=== PATIENT | male | born 1955 | race Caucasian/White ===

== ENCOUNTER → 2017-07-23 07:53 | Outpatient (CLI) | payer BC, SELFPAY ==
[2017-07-23 09:20] LABS: Alanine Aminotransferase 24 IU/L (21-72); Albumin 3.9 g/dL (3.5-5.0); Albumin Globulin Ratio 1.3 (1.0-2.8); Alkaline Phosphatase 88 U/L (38-126); Aspartate Aminotransferase 31 IU/L (17-59); BUN Creatinine Ratio 22.5 (6-22); Bilirubin Total 1.2 mg/dL (0.2-1.3); Cholesterol 189 mg/dL (140-199); Estimated Glomerular Filt Rate > 60.0 mL/min (>60); Glucose 75 mg/dL (80-110); HDL Cholesterol 53 mg/dL (40-60); HEMOLYSIS < 15 (0-50); LDL Cholesterol Calculated 125 mg/dL (<100); Sodium 139 mmol/L (137-145); Total Protein 6.9 g/dL (6.3-8.2); Triglycerides 57 mg/dL (35-150)
[2017-07-23 09:49] LABS: Thyroid Stimulating Hormone 1.92 uIU/mL (0.47-4.68)
== END ==
PROVIDERS: Family Provider Internal Medicine; PCP Internal Medicine; Visit Provider Internal Medicine
DX: I10 Essential (primary) hypertension (principal); E78.5 Hyperlipidemia, unspecified; R63.5 Abnormal weight gain
CPT/HCPCS: 36415; 80053; 80061; 84443

== ENCOUNTER 2017-07-28 07:45 | Emergency (ER) | payer BC, SELFPAY ==
[2017-07-28 07:55] VITALS: BP 145/101; PULSE 92; RESP 18; TEMP 36.7; O2SAT 98; BMI 29.1
[2017-07-28 09:00] VITALS: BP 141/101; PULSE 73; RESP 16; O2SAT 98
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
== END 2017-07-28 09:05 | disposition home or self-care (01) ==
PROVIDERS: Emergency Provider Emergency Medicine; Family Provider Internal Medicine; PCP Internal Medicine
DX: S01.91XA Laceration without foreign body of unspecified part of head, initial encounter (principal); S06.0X0A Concussion without loss of consciousness, initial encounter; V18.0XXA Pedal cycle driver injured in noncollision transport accident in nontraffic accident, initial encounter
CPT/HCPCS: 12001; 99282; 99283

== ENCOUNTER → 2018-01-13 15:26 | Outpatient (CLI) | payer BC, SELFPAY ==
[2018-01-13 15:40] LABS: Bacteria Urine None Seen; RBC Urine None Seen (0-5/HPF); WBC Urine None Seen (0-5/HPF)
[2018-01-13 15:52] LABS: Add Manual Diff / Slide Review NO; Basophils Percent Auto 0.8 % (0-2); Eosinophils Percent Auto 1.5 % (2-4); Hematocrit 43.4 % (41-53); Hemoglobin 14.7 g/dL (13.5-17.5); Lymphocytes Percent Auto 19.6 % (25-40); Mean Corpuscular HGB Conc 33.9 % (30-36); Mean Corpuscular Hemoglobin 30.6 PG (26-34); Mean Corpuscular Volume 90.3 fL (80-100); Monocytes Percent Auto 12.7 % (3-14); Neutrophils Absolute Auto 3900 /uL (3000-5900); Neutrophils Percent Auto 65.4 % (50-75); Platelet Count 272 X10^3/uL (150-400); Red Cell Distribution Width 13.2 % (11.6-14.8)
[2018-01-13 15:59] LABS: Appearance Urine UA CLEAR; Bilirubin Urine UA NEGATIVE (NEGATIVE); Color Urine UA YELLOW; Glucose Urine UA NEGATIVE (Normal); Ketones Urine UA TRACE (NEGATIVE); Leukocyte Esterase Urine UA NEGATIVE (NEGATIVE); Nitrite Urine UA NEGATIVE (Negative); Occult Blood Urine UA NEGATIVE (Negative); Protein Urine UA NEGATIVE (Negative); Specific Gravity Urine UA 1.025 (1.000-1.035); Urobilinogen Urine UA 0.2 E.U./dL (0.2)
[2018-01-13 16:29] LABS: Hemoglobin A1C% w Est Avg Glu 5.3 % (4.0-6.0)
[2018-01-13 16:32] LABS: Culture Indicated Urine Cult Not Indicated; Mucus Urine 2+ (Negative)
[2018-01-13 16:35] LABS: BUN Creatinine Ratio 27.5 (6-22); Blood Urea Nitrogen 22 mg/dL (9-20); Calcium 9.3 mg/dL (8.4-10.2); Carbon Dioxide 27 mmol/L (22-32); Chloride 104 mmol/L (98-107); Estimated Glomerular Filt Rate > 60.0 mL/min (>60); Glucose 82 mg/dL (80-110); HEMOLYSIS < 15 (0-50); Potassium 4.2 mmol/L (3.4-5.1); Sodium 141 mmol/L (137-145)
== END ==
PROVIDERS: PCP Internal Medicine; Visit Provider Orthopaedic Surgery
DX: Z01.818 Encounter for other preprocedural examination (principal); N39.9 Disorder of urinary system, unspecified; Z13.1 Encounter for screening for diabetes mellitus
CPT/HCPCS: 36415; 80048; 81001; 83036; 85025; 93005

== ENCOUNTER 2018-03-17 21:49 | Emergency (ER) | payer BC, SELFPAY ==
[2018-03-17 22:04] VITALS: BP 157/94; PULSE 111; RESP 16; TEMP 36.9; O2SAT 97; BMI 29.1
--- NOTE | 2018-03-17 22:22 | PC.NURSE ---
Pt reports mildly decreased sensation but had a long acting numbing medication during surgery. Skin warm to touch.
--- NOTE | 2018-03-17 22:26 | PC.NURSE ---
Bleeding reinforced with ABD pads x2 and acewrap. Previous dressing applied during surgery not removed. small dressing saturated with blood. Pt denies severe pain, +CMS on L foot, +2 dorsal pedal and posterior tibia pulses
[2018-03-18 00:56] VITALS: BP 136/86; PULSE 96; RESP 16; TEMP 36.7; O2SAT 98
--- NOTE | 2018-03-23 21:28 | ED.WOUNDLAC ---
HPI - Wound/Laceration General Chief Complaint: Wound/Laceration Stated Complaint: left leg surgery today, bleeding through bandages Time Seen by Provider: 03/17/18 23:54 Source: patient and family Mode of arrival: ambulatory Limitations: no limitations History of Present Illness HPI narrative: Patient states he had a left knee surgery today, and that he has been bleeding from 1 of his more superior wounds. He states that the oozing has been constant and has soaked through a few bandages, and that he was told to come to the emergency department to get the bleeding checked out. Patient states the bleeding has actually abated somewhat. Patient states that his knee feels sore, but he does not otherwise feel bad. He denies any trauma to the fresh surgical site. Patient is not aware of any complications during the surgery. No other complaints at this time. No easy bleeding or bruising from any other site. Related Data Home Medications Medication Instructions Recorded Confirmed calcium citrate-vitamin D3 1 tab PO QDAY #0 12/11/16 01/29/18 omeprazole 20 mg PO QDAY #0 12/11/16 01/29/18 Previous Rx's Medication Instructions Recorded zoster vaccine live (PF) [Zostavax 0.5 ml SQ ONCE #0.5 ml 08/28/16 (PF)] lisinopril 40 mg tablet 40 mg PO DAILY #90 tab 08/06/17 sildenafil (antihypertensive) 20 20 mg PO .prn #20 tab 08/28/17 mg tablet atorvastatin 10 mg tablet 10 mg PO HS #90 tab 09/16/17 azithromycin 250 mg tablet See Label Instructions PO .COMPLEX 01/29/18 #6 tab Allergies Allergy/AdvReac Type Severity Reaction Status Date / Time No Known Drug Allergies Allergy Verified 08/06/17 09:03 Review of Systems Review of Systems All systems reviewed & are unremarkable except as noted in HPI and below Constitutional Denies chills, Denies fever(s), Denies lethargy and Denies weakness Eyes Denies change in vision, Denies eye discharge, Denies irritation and Denies loss of vision ENT Ears, Nose, Mouth, and Throat: Denies change in voice, Denies neck pain and Denies sore throat Cardiovascular Denies chest pain, Denies irregular heart rhythm, Denies lightheadedness, Denies palpitations, Denies dyspnea, Denies dyspnea on exertion and Denies orthopnea Respiratory Denies cough, Denies dyspnea, Denies dyspnea on exertion and Denies wheezing Gastrointestinal Gastrointestinal: Denies abdominal pain, Denies change in bowel habits, Denies diarrhea, Denies nausea and Denies vomiting Genitourinary Denies hematuria, Denies flank pain, Denies urinary incontinence and Denies urinary urgency Musculoskeletal Denies neck pain Integumentary/Breasts Denies pruritus, Denies erythema, Denies rash and Denies wounds Neurologic Denies confusion, Denies loss of vision and Denies weakness Psychiatric Denies anxiety, Denies confusion, Denies depression, Denies homicidal ideation and Denies suicidal ideation Endocrine Denies palpitations Hematologic/Lymphatic Denies easy bruising Allergic/Immunologic Denies wheezing [facility] Medical History Post-op bleeding (Acute) Concussion (Acute) Forehead abrasion (Acute) Osteoarthritis (Chronic) Hypertension (Chronic) Sleep apnea (Chronic) GERD (gastroesophageal reflux disease) (Chronic) Hyperlipidemia (Chronic) Erectile dysfunction (Chronic 05/23/15) Surgical History Status post knee surgery (Acute) Social History Smoking Status: Never smoker Exam Initial Vital Signs Initial Vital Signs: Vital Signs Temperature 98.5 F 03/17/18 22:04 Pulse Rate 111 H 03/17/18 22:04 Respiratory Rate 16 03/17/18 22:04 Blood Pressure 157/94 H 03/17/18 22:04 Pulse Oximetry 97 03/17/18 22:04 Const General: cooperative and well developed Nutritional Appearance: well nourished Orientation: alert, awake, oriented x3 and not confused [facility] Head: normocephalic and atraumatic Ears: external ears normal and TM's normal bilaterally Nose: external nose normal and No nasal discharge Face and sinus: sinuses nontender, face symmetric, no sinus tenderness and No dry mucous membranes Mouth: oral mucosae normal and moist mucous membranes Teeth and gingiva: dentition normal Throat: tonsils normal and uvula midline Eyes General: appearance normal, both eyes and all related structures Eyelids: eyelids normal Conjunctivae: conjunctivae normal Sclera: sclerae normal Pupils: PERRL EOM: EOM intact bilaterally Neck Neck: normal visual inspection, trachea midline, No lymphadenopathy, No midline deformity and No JVD Lymphatic: No lymphedema Chest Chest: normal inspection of the chest Resp Effort & Inspection: normal respiratory effort, able to speak in complete sentences, no respiratory distress and no use of accessory muscles Auscultation: clear to auscultation bilaterally, no rales, no rhonchi and no wheezes Cardio Rate: regular rate Rhythm: regular rhythm Heart Sounds: no click, no gallops, no murmurs and no rubs Pulses: normal peripheral pulses GI Inspection: non-distended Palpation: soft, no hepatosplenomegaly, No guarding, No pulsatile mass and No tender Auscultation: normal bowel sounds Back/Spine/Pelvis Back: No CVA tenderness Cervical Spine: cervical ROM normal and No pain with cervical ROM Thoracic/Lumbar Spine: thoracic and lumbar spine normal to inspection Skin General: no rashes or lesions noted, No jaundice and No petechiae Other: Patient has several fresh incision over his left knee. No active bleeding is noted. No hematoma is palpable, and no contusions are noted. Patient has a 1 cm incision superior to his knee from which there appears to have been recent bleeding. A moderate amount of blood is initially expressible from the wound. Blood is dark and nonclotted. The amount of blood expressible decreases with each expression until no further blood is expressible. No pulsatile bleeding, active bleeding, or bright red blood is noted. No bleeding is noted from any of the other wounds. One suture has come loose from the wound in question. No evidence of trauma to the wounds themselves. Neuro General: alert, oriented x3, gait normal and no focal motor deficits Speech: speech normal Extrem General: full ROM, no clubbing, cyanosis or edema, no pedal edema and no calf tenderness Left lower extremity: knee (Fresh surgical sites, as noted above. There is a mild amount of edema about the left knee. No other left lower extremity abnormalities.) Psych Appearance: well kempt Mental Status: mental status grossly normal Attitude: cooperative Thought Content: normal and suicidality Judgment: judgment good Procedures Laceration Repair Laceration 1: Site: lower extremity Side (If applicable): left Size (cm): 1 Description: linear Depth: simple, single layer Local Anesthetic: lidocaine 1% Amount of anesthesia used (mL): 1 Skin layer closed with: nylon Number of sutures: 1 Technique: simple, interrupted Course Course Narrative: I did not find evidence of serious, significant, or ongoing bleeding from any of the patient's wounds. I suspected venous postoperative bleeding, forming a hematoma which is leaking out through the patient's wound in question. There does not appear to be significant reaccumulation of any blood in the hematoma cavity. I have discussed with the patient care of the wound, as well as prevention of further bleeding. I have replaced the loose suture, as above. Patient is advised to follow up with his orthopedic surgeon, Dr. Torie Fink, for any further concerns. MDM - Wound/Laceration Medical Records Attestation: I reviewed the patient's medical records. Discharge Plan Departure Patient Disposition: Home Clinical Impression: Post-op bleeding Discharge Date/Time: 03/18/18 01:32 Interventions: ED Discharge Assessment Last Done: 03/18/18 01:31 Activity Restrictions/Additional Instructions: Your bleeding is most likely caused by a blood collection, called a hematoma, that is leaking out through your incision. There is no evidence at this time of a severe or ongoing bleed. Please follow up with your orthopedist, as scheduled, for your postoperative appointment. If you have further concerns, please call their office for an earlier appointment. Prescriptions: No Action azithromycin 250 mg tablet See Label Instructions PO .COMPLEX Qty: 6 RF: 0 zoster vaccine live (PF) [Zostavax (PF)] 19,400 UNIT/0.65 ML suspension for reconstitution 0.5 ml SQ ONCE Qty: 0.5 RF: 0 omeprazole 20 MG capsule,delayed release(DR/EC) 20 mg PO QDAY Qty: 0 RF: 0 calcium citrate-vitamin D3 200 MG/125 IU tablet 1 tab PO QDAY Qty: 0 RF: 0 sildenafil (antihypertensive) 20 mg tablet 20 mg PO .prn Qty: 20 RF: 3 atorvastatin [Lipitor] 10 mg tablet 10 mg PO HS Qty: 90 RF: 2 lisinopril 40 mg tablet 40 mg PO DAILY Qty: 90 RF: 3 Referrals: Jen Jaquez ARNP [Primary Care Provider] - Torie Fink MD [Physician] -
== END 2018-03-18 01:32 | disposition home or self-care (01) ==
PROVIDERS: Emergency Provider Emergency Medicine; Family Provider Internal Medicine; PCP Internal Medicine
DX: T81.9XXA Unspecified complication of procedure, initial encounter (principal)
CPT/HCPCS: 12001; 99282; 99283

== ENCOUNTER → 2018-09-22 10:14 | Outpatient (CLI) | payer BC, SELFPAY ==
--- NOTE | 2018-09-22 | DI.RAD.S_ITS ---
PROCEDURE: XR RIBS RT MIN 3V W CXR 1V INDICATIONS: FALL/RT RIB PAIN TECHNIQUE: 2 views of the right ribs were acquired, along with a single view chest. COMPARISON: None. FINDINGS: Surgical changes and devices: None. Bones and chest wall: No dislocations, but there is a fracture involving a right lateral lower rib, poorly visualized, but with what appears to be a slight subpulmonic right pleural effusion after trauma. No suspicious bony lesions. Overlying soft tissues appear unremarkable. Lungs and pleura: No pleural effusions or pneumothorax. Lungs appear clear. Mediastinum: Mediastinal contours appear normal. Heart size is normal. IMPRESSION: Subpulmonic small right pleural effusion in the setting of a single visualized minimally displaced rib fracture, no pneumothorax. Dictated by: Yann Lambert M.D. on 09/22/2018 at 11:38 Approved by: Yann Lambert M.D. on 09/22/2018 at 11:41
== END ==
PROVIDERS: PCP Internal Medicine; Visit Provider Internal Medicine
DX: S22.31XA Fracture of one rib, right side, initial encounter for closed fracture (principal); R07.81 Pleurodynia; J90 Pleural effusion, not elsewhere classified; W18.2XXA Fall in (into) shower or empty bathtub, initial encounter
CPT/HCPCS: 71101

== ENCOUNTER → 2018-09-26 07:30 | Outpatient (CLI) | payer BC, SELFPAY ==
--- NOTE | 2018-09-26 | DI.RAD.S_ITS ---
PROCEDURE: XR CHEST 2V INDICATIONS: RT RIB FX TECHNIQUE: 2 views of the chest were acquired. COMPARISON: [facility], , CHEST 2 VIEW, 09/03/2016, 9:33. FINDINGS: Surgical changes and devices: None. Lungs and pleura: Lungs are clear. No pleural effusions or pneumothorax. Mediastinum: Mediastinal contours are normal. Heart size is normal. Bones and chest wall: Minimally displaced acute appearing lateral right ninth rib fracture. No suspicious bony abnormalities. Soft tissues appear unremarkable. IMPRESSION: Minimally displaced acute appearing lateral right ninth rib fracture. No pneumothorax. No acute cardiopulmonary abnormalities. Dictated by: Rowdy Weir M.D. on 09/26/2018 at 9:25 Approved by: Rowdy Weir M.D. on 09/26/2018 at 9:27
== END ==
PROVIDERS: PCP Internal Medicine; Visit Provider Internal Medicine
DX: S22.31XA Fracture of one rib, right side, initial encounter for closed fracture (principal)
CPT/HCPCS: 71046

== ENCOUNTER → 2018-11-10 14:40 | Outpatient (CLI) | payer BC, SELFPAY ==
--- NOTE | 2018-11-10 | DI.RAD.S_ITS ---
PROCEDURE: XR RIBS RT MIN 3V W CXR 1V INDICATIONS: Right rib fx TECHNIQUE: 2 views of the right ribs were acquired, along with a single view chest. COMPARISON: [facility], CR, XR RIBS RT MIN 3V W CXR 1V, 09/22/2018, 10:35. FINDINGS: Surgical changes and devices: None. Bones and chest wall: No previously unidentified fractures or dislocations. No suspicious bony lesions. Overlying soft tissues appear unremarkable. Healing of the right lateral lower rib fracture. Mild residual malalignment. Lungs and pleura: No pleural effusions or pneumothorax. Lungs appear clear. Mediastinum: Mediastinal contours appear normal. Heart size is normal. IMPRESSION: Mild residual malalignment during healing of the right lateral lower rib fracture previously identified. No new injury. Dictated by: Yann Lambert M.D. on 11/10/2018 at 15:14 Approved by: Yann Lambert M.D. on 11/10/2018 at 15:15
== END ==
PROVIDERS: PCP Internal Medicine; Visit Provider Internal Medicine
DX: S22.31XA Fracture of one rib, right side, initial encounter for closed fracture (principal)
CPT/HCPCS: 71101

== ENCOUNTER 2018-12-12 11:44 | Day surgery (SDC) | payer BC, SELFPAY ==
[2018-12-12] MEDS: HYOSCYAMINE 0.125 MG TABLET PO (12:12)
[2018-12-12] MEDS: SODIUM CHLORIDE 0.9% 1,000 ML 200 ML IV (12:12)
[2018-12-12 12:16] VITALS: BP 116/81; PULSE 103; RESP 16; TEMP 36.7; O2SAT 98; BMI 29.2
--- NOTE | 2018-12-12 13:00 | PM.OP.ENDO ---
Operative Date/Time/Diagnoses Date of procedure: 12/12/18 Time of procedure: 13:00 Pre-op diagnosis: 1. Bright red bleeding per rectum 2. Melena 3. History of hemorrhoids 4. Screening for colon cancer Post-op diagnosis: other (1. Normal colonoscopy, 2. External hemorrhoids) Procedure & Clinicians Study performed: Colonoscopy Same procedure as scheduled: Yes Indications: 1. Bright red bleeding per rectum 2. Melena 3. History of hemorrhoids 4. Screening for colon cancer Surgeon: Jenni Marlow Procedure Notes SCOAP/Timeout: 13:05 Procedure in detail: ENDOSCOPIST: Jenni Marlow MD Sedation RN: Delroy Boyce RN Sedation start time: 1:07 pm Sedation and time: 1:23 p.m. PROCEDURE: Colonoscopy INDICATIONS: 1. Bright red bleeding per rectum 2. Melena 3. History of hemorrhoids 4. Screening for colon cancer MEDICATION: Levsin 0.125 mg sublingual, incremental doses of Versed and fentanyl until appropriate level sedation achieved. ASA CLASS: 2 CECAL WITHDRAWAL TIME: 19 minutes COMPLICATIONS: None. EXTENT OF PROCEDURE: Cecum. QUALITY OF PREP: Good with portions of liquid stool. PROCEDURE: Prior to insertion of the colonoscope, a digital rectal examination was accomplished with circumferential palpation of the distal rectal mucosa, moderate external hemorrhoids noted. The high-definition colonoscope was passed into the rectum in the usual fashion and advanced over to the cecum without difficulty. The ileocecal valve, appendiceal stoma, and medial wall all could be inspected and no abnormalities were seen. ASCENDING COLON: As the colonoscope was withdrawn, care was taken to expose and inspect the haustral folds and no abnormalities were seen. HEPATIC FLEXURE: Normal no polyps, diverticula or other abnormalities. TRANSVERSE COLON: Normal no polyps, diverticula or other abnormalities. DESCENDING COLON: Normal no polyps, diverticula or other abnormalities. SIGMOID COLON: Normal no polyps, diverticula or other abnormalities. RECTUM: Normal. J maneuver was produced. There was no significant perianal disease. The J maneuver was broken. The remainder of the rectum was inspected and there was moderate external hemorrhoid disease. The scope was withdrawn. IMPRESSION: 1. Normal colonoscopy 2. Moderate external hemorrhoids PLAN: 1. Repeat colonoscopy in 10 years 2. Source of patient's bleeding is likely secondary to external hemorrhoids. High-fiber therapy outlined. The possibility of a missed lesion including a malignancy has been discussed with the patient previously. Potential alarm symptoms have been discussed and should be reported immediately. Scope withdrawal time: 19 minutes Sedation minutes: 15 Findings: other findings (External hemorrhoids) Specimen(s): none sent Complications: none Impression: 1. Normal colonoscopy 2. External hemorrhoids Post-procedure Recommendations: Colonscopy in 10 years Follow up: as needed Disposition: PACU
[2018-12-12 13:41] VITALS: BP 116/67; PULSE 90; RESP 15; TEMP 36.7; O2SAT 96
[2018-12-12 13:46] VITALS: BP 98/73; PULSE 88; RESP 13; O2SAT 96
[2018-12-12 13:51] VITALS: BP 109/67; PULSE 87; RESP 15; O2SAT 96
[2018-12-12 13:56] VITALS: BP 101/68; PULSE 88; RESP 12; TEMP 36.6; O2SAT 96
[2018-12-12 14:03] VITALS: BP 111/74; PULSE 84; RESP 15; TEMP 36.5; O2SAT 97
[2018-12-12] MEDS: MIDAZOLAM 5 MG/5 ML VIAL IV (14:49)
[2018-12-12] MEDS: fentaNYL 250 MCG/5 ML INJ IV (14:49)
== END 2018-12-12 14:14 | disposition home or self-care (01) ==
PROVIDERS: PCP Internal Medicine; Visit Provider Student in an Organized Health Care Education/Training Program
PROC: 0DJD8ZZ Inspection of Lower Intestinal Tract, Via Natural or Artificial Opening Endoscopic (ICD-10-PCS; CPT 45378; principal; 2018-12-12 13:00)
DX: K62.5 Hemorrhage of anus and rectum (principal); K64.4 Residual hemorrhoidal skin tags
CPT/HCPCS: 45378; J2250; J3010

== ENCOUNTER → 2019-04-28 10:07 | Outpatient (CLI) | payer BC, SELFPAY ==
--- NOTE | 2019-04-28 | DI.RAD.S_ITS ---
PROCEDURE: XR KNEE LT 3V INDICATIONS: LEFT KNEE PAIN TECHNIQUE: 3 views of the knee were acquired. COMPARISON: [facility], CR, XR KNEE 3 VIEWS BILATERAL, 12/23/2017, 8:47. [facility] [place], CR, XR KNEE ARTHRITIC SERIES LT, 04/01/2018, 14:34. [facility] [place], CR, XR KNEE ARTHRITIC SERIES LT, 09/19/2018, 8:06. [facility], CR, KNEE 1-2 VIEWS RIGHT, 12/27/2016, 17:27. FINDINGS: Bones: No acute fractures or dislocations. Status post left knee hemiarthroplasty involving the medial joint compartment with subtle increased lucency at the bone prosthesis interface medially and posteriorly. Linear lucency is less than a millimeter thick. No hardware failure. No suspicious bony lesions. Stable suprapatellar enthesophyte. Soft tissues: Persistent small ossification noted adjacent to the quadriceps tendon on the lateral projection with small joint effusion. No suspicious soft tissue calcifications. IMPRESSION: 1. Status post left knee hemiarthroplasty of the medial compartment with very subtle linear lucency that appears most prominent medially and posteriorly at the bone-prosthesis interface. This may be due to imaging technique/positioning. However, early loosening not excluded. 2. Small suprapatellar joint effusion. Dictated by: Rowdy Weir M.D. on 04/28/2019 at 12:55 Approved by: Rowdy Weir M.D. on 04/28/2019 at 13:05
== END ==
PROVIDERS: PCP Internal Medicine; Referring Provider Internal Medicine; Visit Provider Internal Medicine
DX: M25.562 Pain in left knee (principal); M25.462 Effusion, left knee; Z96.652 Presence of left artificial knee joint
CPT/HCPCS: 73562

== ENCOUNTER → 2019-05-01 09:32 | Outpatient (CLI) | payer BC, SELFPAY ==
--- NOTE | 2019-05-01 | DI.US.S_ITS ---
PROCEDURE: US ABDOMEN COMPLETE INDICATIONS: UNSPECIFIED ABD PAIN, GROIN PAIN TECHNIQUE: Real-time scanning was performed of the abdominal and retroperitoneal organs, with image documentation. COMPARISON: [facility], CT, CT-IVP, 12/21/2009, 12:48. FINDINGS: Liver: Liver is normal in size and homogeneous in echotexture. There is a conglomerate cyst in the left hepatic lobe measuring 2.9 x 2.3 x 3.0 cm. Gallbladder: No gallstones. No gallbladder wall thickening, pericholecystic fluid or sonographic Rodrigues's sign. Biliary ducts: Intrahepatic bile ducts are non-dilated. Extrahepatic bile duct caliber measures 4.5 mm. Normal is 6-7 mm or less in diameter, or 10 mm or less post-cholecystectomy. Pancreas: Obscured by overlying bowel gas. Spleen: Spleen is borderline enlarged measuring 13.2 cm in length. Kidneys: Kidneys are normal in size and echotexture. Right kidney measures 13.3 cm long; left kidney measures 13.4 cm long. No hydronephrosis or nephrolithiasis. No solid masses. There is a 2.4 x 21 x 2.6 cm cyst in left kidney. Aorta: Visualized aorta is normal in caliber at less than 3 cm. Iliacs: Proximal common iliac arteries are normal in caliber at less than 2.5 cm. IVC: Intrahepatic inferior vena cava is patent. Miscellaneous: No free abdominal fluid. IMPRESSION: 1. Borderline splenomegaly. 2. Pancreas obscured by overlying bowel gas. 3. Hepatic cyst and left renal cyst. Dictated by: Mary Tamayo M.D. on 05/01/2019 at 13:40 Approved by: Mary Tamayo M.D. on 05/01/2019 at 13:45
== END ==
PROVIDERS: PCP Internal Medicine; Referring Provider Internal Medicine; Visit Provider Internal Medicine
DX: R10.30 Lower abdominal pain, unspecified (principal); K76.89 Other specified diseases of liver; N28.1 Cyst of kidney, acquired
CPT/HCPCS: 76700

== ENCOUNTER → 2020-03-04 09:04 | Outpatient (CLI) | payer BC, SELFPAY ==
[2020-03-04 12:20] LABS: COVID19 -Nasal RAPID Negative (Negative)
== END ==
PROVIDERS: PCP Internal Medicine; Visit Provider Specialist
DX: Z01.812 Encounter for preprocedural laboratory examination (principal); Z20.828 Contact with and (suspected) exposure to other viral communicable diseases
CPT/HCPCS: 87635; C9803

== ENCOUNTER → 2020-03-05 13:16 | Outpatient (CLI) | payer BC, SELFPAY ==
--- NOTE | 2020-03-05 13:19 | DI.RAD.S_ITS ---
PROCEDURE: XR WRIST RT MIN 3V INDICATIONS: right hand and wrist pain after fall TECHNIQUE: 3 views of the wrist were acquired. COMPARISON: [facility], [place], XR HAND RT MIN 3V, 03/05/2020, 13:20. [facility], [place], WRIST MINIMUM 3 VIEWS RIGHT, 02/21/2016, 16:13. FINDINGS: Bones: Irregularity of the hamate bone is less conspicuous compared to the same day hand radiographs. No dislocations. Moderate degenerative change most pronounced at the 1st CMC joint. No suspicious bony lesions. Soft tissues: No suspicious soft tissue calcifications. IMPRESSION: Question of hamate fracture better seen on same day radiographs of the hand. Correlate for point tenderness. Follow-up radiographs in 10-[address] of the wrist would be helpful. Dictated by: Flip La M.D. on 03/05/2020 at 12:48 Approved by: Flip La M.D. on 03/05/2020 at 12:50
--- NOTE | 2020-03-05 13:19 | DI.RAD.S_ITS ---
PROCEDURE: XR HAND RT MIN 3V INDICATIONS: right hand and wrist pain after fall TECHNIQUE: 3 views of the hand(s) acquired. COMPARISON: [facility], CR, XR WRIST RT MIN 3V, 03/05/2020, 13:20. FINDINGS: Bones: Irregularity in the region of the hamate bone seen on the lateral projection. This is more prominent compared to the x-rays from 2016 and is suspicious for nondisplaced fracture. No dislocations. Moderate degenerative change most pronounced at the 1st CMC joint. No suspicious bony lesions. Bones appear somewhat osteopenic. Soft tissues: No suspicious soft tissue calcifications. IMPRESSION: Concern for nondisplaced fracture at the hamate bone. Correlate for point tenderness. Follow-up radiographs in 10-[address] of the wrist would be helpful for confirmation. Dictated by: Flip La M.D. on 03/05/2020 at 12:44 Approved by: Flip aL M.D. on 03/05/2020 at 12:47
== END ==
PROVIDERS: PCP Internal Medicine; Referring Provider Physician Assistant; Visit Provider Physician Assistant
DX: M25.531 Pain in right wrist (principal); M79.641 Pain in right hand
CPT/HCPCS: 73110; 73130

== ENCOUNTER 2020-03-07 11:49 | Day surgery (SDC) | payer BC, SELFPAY ==
[2020-03-03 13:35] VITALS: BMI 31.1
[2020-03-07] VITALS (9 sets, daily range): BP systolic 120–147; BP diastolic 75–104; PULSE 77–90; RESP 14–24; TEMP 36.3–36.8; O2SAT 92–97; BMI 29.8
[2020-03-07] MEDS: LACTATED RINGERS 1,000 ML 42 ML IV (12:27)
--- NOTE | 2020-03-07 14:19 | PM.PREOP ---
Pre-operative Note COVID-19 COVID-19 status: Negative Result date/Date tested (Pos, Neg/Pending): 03/04/20 Interval Note History & Physical reviewed/Exam performed by Physician: Yes Changes to H&P: No
[2020-03-07] MEDS: CEFAZOLIN 2 GM/100 ML FROZ.PIGGY IV (14:52)
--- NOTE | 2020-03-07 15:04 | SUR.OPER ---
Supine on padded OR bed, head on pillow, arms secured on padded arm boards at <90 degrees abduction, legs uncrossed, safety belt at thigh, tape over blanket over lower legs.
--- NOTE | 2020-03-07 15:42 | PM.OP.1 ---
Operative Date/Time/Diagnoses Date of procedure: 03/07/20 Time of procedure: 15:42 Pre-op diagnosis: Umbilical hernia reducible Post-op diagnosis: same Procedure & Clinicians Procedure: Repair with underlay of mesh Same procedure as scheduled: Yes Indications: Symptomatic umbilical hernia below is a diastasis recti Surgeon: Jose Go Click Yes if Unassisted: Yes Anesthesia Type: General Operative Notes Findings: Small defect. 1.7 in piece of mesh placed under the defect. Closure Type: primary Specimen(s): none sent Prosthetic devices, grafts, tissues, transplants, or devices: Circular piece of mesh Applied: catheter Estimated Blood Loss (mL): 5 Blood products transfused: none Procedure in detail: Patient is placed supine on the operating room table and underwent general LMA anesthesia. He was prepped and draped in usual fashion. Curvilinear incision was made beneath the umbilicus and carried down level the fascia. Hernia sac was entered and the contents (E fat) E were partially removed and partially reduced. Fascial edge was cleared in the tissue removed from the fascia and under the muscle. I 1.7 in diameter circular piece of mesh was placed under the fascia and tacked into the closure will using interrupted 0 Ethibond sutures. The umbilicus was tacked down to the fascial edge with 3-0 Vicryl. The subQ was closed with interrupted 3 0 Vicryl the skin was closed running 4-0 Vicryl subcuticular stitch and Steri-Strips. Dressing was applied the patient was awakened and taken the recovery area extubated and in good condition. Complications: none Post-operative Condition: stable Disposition: PACU
[2020-03-07] MEDS: BUPIVACAINE 0.5% (PF) VIAL 30 ML INJ (16:01)
[2020-03-07] MEDS: OXYCODONE IR 5 MG TABLET PO (16:20)
== END 2020-03-07 16:56 | disposition home or self-care (01) ==
PROVIDERS: PCP Internal Medicine; Referring Provider Specialist; Visit Provider Specialist
PROC: (CPT 49585; principal; 2020-03-07 13:15)
DX: K42.9 Umbilical hernia without obstruction or gangrene (principal); I10 Essential (primary) hypertension; K21.9 Gastro-esophageal reflux disease without esophagitis; E78.00 Pure hypercholesterolemia, unspecified
CPT/HCPCS: 49585; C1781; J0690; J1100; J1885; J2405; J2704; J3010

== ENCOUNTER → 2020-06-28 09:18 | Outpatient (CLI) | payer BC, SELFPAY ==
[2020-06-28] MEDS: COVID-19 VACC #1, MRNA(MOD) 100 MCG/0.5 ML VIAL IM (09:24)
== END ==
PROVIDERS: PCP Internal Medicine; Visit Provider Internal Medicine
DX: Z23 Encounter for immunization (principal)
CPT/HCPCS: 0011A; 91301

== ENCOUNTER → 2020-07-25 14:26 | Outpatient (CLI) | payer BC, SELFPAY ==
--- NOTE | 2020-07-25 14:28 | DI.ECHO.S_ITS ---
[facility]---------+ [facility] +---------+ : : [address] : [address] : : : : [id number] : : : : Phone: [phone] Echocardiogram Report + + :Name: REY CLANCY Study Date: 07/25/2020 Height: 72 in : :[facility] ReadingLocation: Weight: 198 lb : : Gender: Male BSA: 2.1 m2 : :: 1955 Age: 64 yrs BP: 122/89 mmHg: :Reason For Study: Arrhythmia : :Ordering Physician: JOHNNA, : :BLAKE Performed By: Idris Zavala : :Referring: BLAKE ROSALES : + + Interpretation Summary Normal left ventricle size with ejection fraction 60-65%. Mild aortic valve sclerosis. Mildly enlarged ascending aorta. Comparison is made with the echocardiogram of 09/08/2014, there has been no significant change. Procedure: A two-dimensional transthoracic echocardiogram with color flow and Doppler was performed. The study quality was technically adequate. Comparison is made with the echocardiogram of 09/08/2014. The patient was in sinus rhythm with heart rates between 81-94 bpm during the exam. Left Ventricle: The left ventricle is normal in size and wall thickness. The ejection fraction is estimated to be 60-65%. There are no focal wall motion abnormalities. Diastolic function could not be accurately assessed due to unobtainable data. Right Ventricle: The right ventricle is normal in size and function. Atria: Both atria are normal in size. There is no Doppler evidence for an interatrial shunt. Mitral Valve: The mitral valve is normal in structure and function. There is no mitral regurgitation noted. Aortic Valve: There is mild aortic valve sclerosis. There is trace aortic regurgitation. Tricuspid Valve: The tricuspid valve is normal in structure and function. No tricuspid regurgitation. Pulmonary artery pressures cannot be estimated because of the lack of a measurable TR jet velocity but the IVC suggests a CVP of around 3 mmHg. Pulmonic Valve: The pulmonic valve is not well visualized. There is no pulmonic valvular regurgitation. Great Vessels: The aortic root is normal size. The ascending aorta is mildly enlarged. The IVC is of normal diameter and collapses greater than 50% with a sniff. This suggests a low right atrial pressure of 3 mm Hg. Pericardium/ Pleura There is no pericardial effusion. There is no pleural effusion. MMode/2D Measurements & Calculations LVIDd: 4.9 cm LVOT diam: 2.3 cm LVIDs: 2.6 cm Ao root diam: 3.5 cm FS: 47.2 % asc Aorta Diam: 4.1 cm IVSd: 0.83 cm LVPWd: 0.96 cm LV ramsey. diameter/BSA (cm/m^2): 2.3 LV sys. diameter/BSA (cm/m^2): 1.2 LA A2 area: 22.5 cm2 RA long axis: 6.4 cm LA A4 area: 20.0 cm2 RA area: 17.5 cm2 LA length (vol): 5.7 cm RA vol: 40.3 ml LA vol: 66.7 ml RA : 19.0 ml/m2 LA vol index: 31.5 ml/m2 TAPSE: 2.2 cm Doppler Measurements & Calculations Ao V2 max: 191.2 cm/sec LVOT Max Mario: 111.9 cm/sec Ao V2 mean: 136.8 cm/sec LV V1 max P.0 mmHg Ao max P.6 mmHg LV V1 VTI: 22.0 cm Ao mean P.2 mmHg GUERRERO(I,D): 2.6 cm2 Ao V2 VTI: 34.9 cm GUERRERO(V,D): 2.4 cm2 sev ratio: 0.63 GUERRERO indexed to BSA (cm^2/m^2): 1.2 MV E max mario: 60.9 cm/sec PA pr(Accel): 35.3 mmHg MV A max mario: 83.0 cm/sec MV E/A: 0.73 Med Peak E' Mario: 8.3 cm/sec E/E' med: 7.3 Lat Peak E' Mario: 9.0 cm/sec E/E' lat: 6.8 E/e' average: 7.0 MV dec time: 0.34 sec SV(LVOT): 89.9 ml Electronically signed by: Carol Stapleton on Reading Physician:07/25/2020 03:55 PM
== END ==
PROVIDERS: PCP Internal Medicine; Referring Provider Internal Medicine; Visit Provider Internal Medicine
DX: I35.8 Other nonrheumatic aortic valve disorders (principal); I77.89 Other specified disorders of arteries and arterioles; I49.9 Cardiac arrhythmia, unspecified; R01.1 Cardiac murmur, unspecified; R94.31 Abnormal electrocardiogram [ECG] [EKG]
CPT/HCPCS: 93306

== ENCOUNTER → 2020-07-27 07:51 | Outpatient (CLI) | payer BC, SELFPAY ==
[2020-07-27] MEDS: COVID-19 VACC #2, MRNA(MOD) 100 MCG/0.5 ML VIAL IM (08:09)
== END ==
PROVIDERS: PCP Internal Medicine; Visit Provider Internal Medicine
DX: Z23 Encounter for immunization (principal)
CPT/HCPCS: 0012A; 91301

== ENCOUNTER → 2020-09-16 07:29 | Outpatient (CLI) | payer BC, SELFPAY ==
[2020-09-16 08:01] LABS: Add Manual Diff / Slide Review NO; Basophils Absolute Auto 0 /uL (0-100); Basophils Percent Auto 0.5 % (0-2); Eosinophils Absolute Auto 100 /uL (0-450); Eosinophils Percent Auto 1.5 % (2-4); Hematocrit 40.7 % (41-53); Hemoglobin 13.4 g/dL (13.5-17.5); Lymphocytes Absolute Auto 1200 /uL (1100-4500); Lymphocytes Percent Auto 20.6 % (25-40); Mean Corpuscular HGB Conc 32.9 % (30-36); Mean Corpuscular Hemoglobin 29.7 PG (26-34); Mean Corpuscular Volume 90.2 fL (80-100); Monocytes Absolute Auto 700 /uL (0-900); Monocytes Percent Auto 13.1 % (3-14); Neutrophils Absolute Auto 3600 /uL (1500-7000); Neutrophils Percent Auto 64.3 % (50-75); Platelet Count 316 X10^3/uL (150-400); Red Blood Cell Count 4.51 X10^6/uL (4.5-5.9); Red Cell Distribution Width 14.3 % (11.6-14.8); White Blood Cell Count 5.6 X10^3/uL (4.5-11.0)
[2020-09-16 08:18] LABS: Cholesterol 275 mg/dL (140-199); HDL Cholesterol 51 mg/dL (40-60); LDL Cholesterol Calculated 210 mg/dL (<100); Triglycerides 72 mg/dL (35-150)
[2020-09-16 08:43] LABS: Prostate Specific Antigen 1.18 ng/mL (0.10-4.00)
[2020-09-16 09:05] LABS: Iron 86 ug/dL (49-181)
[2020-09-16 09:17] LABS: Percent Iron Saturation 24 % (20-50); Total Iron Binding Capacity 354 ug/dL (261-462); Transferrin 280 mg/dL (206-381)
== END ==
PROVIDERS: PCP Internal Medicine; Referring Provider Internal Medicine; Visit Provider Internal Medicine
DX: D64.9 Anemia, unspecified (principal); E78.5 Hyperlipidemia, unspecified; Z12.5 Encounter for screening for malignant neoplasm of prostate
CPT/HCPCS: 36415; 80061; 83540; 83550; 84153; 84466; 85025

== ENCOUNTER → 2020-12-15 10:05 | Outpatient (CLI) | payer BC, SELFPAY ==
--- NOTE | 2020-12-15 | DI.RAD.S_ITS ---
PROCEDURE: XR RIBS RT 2V INDICATIONS: RIGHT RIB PAIN TECHNIQUE: 3 views of the right ribs were acquired. COMPARISON: None. FINDINGS: Surgical changes and devices: None. Bones and chest wall: No acute fractures or dislocations. No suspicious bony lesions. Overlying soft tissues appear unremarkable. Old healed right-sided rib fractures noted. Tendon anchor noted in the right humeral head as well. Lungs and pleura: The visualized lung appears clear. No pleural effusions or pneumothorax are visible. IMPRESSION: No acute fracture or pneumothorax Old healed right-sided rib fractures noted. Approved by: Sony Christopher M.D. on 12/15/2020 at 11:46
== END ==
PROVIDERS: PCP Internal Medicine; Referring Provider Internal Medicine; Visit Provider Internal Medicine
DX: R07.81 Pleurodynia (principal); Z87.81 Personal history of (healed) traumatic fracture
CPT/HCPCS: 71100

== ENCOUNTER → 2021-11-17 16:35 | Outpatient (CLI) | payer MEDICARE, OTHER, SELFPAY ==
--- NOTE | 2021-11-17 | DI.MRI.S_ITS ---
PROCEDURE: MR SHOULDER RT WO CON INDICATIONS: Rotator cuff tear or rupture of right shoulder TECHNIQUE: Noncontrast oblique coronal T2 fast spin echo with fat saturation, oblique sagittal T1 spin echo and T2 fast spin echo with fat saturation, axial T1 spin echo and T2 fast spin echo with fat saturation through the shoulder. COMPARISON: [facility] [place], CR, XR SHOULDER 2+ VIEWS RIGHT, 09/29/2021, 10:17. [facility], MR, SHOULDER WITHOUT CONTRAST, 02/23/2016, 17:55. FINDINGS: Image quality: Image quality is mildly degraded by expected metal artifact. Diagnostic information is obtained. Rotator cuff: There is full-thickness tearing of the supraspinatus tendon and the anterior portion of the infraspinatus tendon from their distal insertions measuring up to 2.6 cm in anterior-posterior dimension with proximal tendon retraction measuring up to 3.2 cm. Mild edema is seen within the infraspinatus muscle, consistent with a superimposed muscle strain. There is no significant supraspinatus or infraspinatus muscle atrophy. Postsurgical changes are seen from subscapularis tendon repair with an intact surgical construct. No recurrent full-thickness subscapularis tendon tear is seen. There is mild chronic fatty infiltration involving the superior portion of the subscapularis muscle. The teres minor tendon is intact. Bones and bursae: No acute trabecular bone injury or fracture. A metallic anchor is seen in the anterior humeral head. There is mild partial-thickness cartilage thinning and irregularity in the glenoid and medial humeral head. Postsurgical changes are seen of the acromioclavicular joint without recurrent narrowing of the supraspinatus outlet. A small amount of fluid is seen in the subacromial/subdeltoid bursa, which communicates with the glenohumeral joint space through the full-thickness rotator cuff tendon tear. Capsule and soft tissues: Diminutive appearance of the superior labrum may be secondary to prior labral debridement and/or chronic degeneration. Status post biceps long head tenodesis with an intact surgical construct. There is mild partial effacement of the fat in the rotator interval. No focal capsular defect is identified. IMPRESSION: 1. Postsurgical changes from subscapularis tendon repair with an intact surgical construct. 2. Full-thickness tearing of the supraspinatus tendon and the anterior fibers of the infraspinatus tendon from their distal insertions measuring 2.6 cm in anterior-posterior dimension with proximal tendon retraction measuring up to 3.2 cm. Superimposed grade 1 strain of the infraspinatus muscle without significant muscle atrophy. 3. Status post biceps long head tenodesis with an intact surgical construct. 4. Blunting of the superior labrum is most likely secondary to prior later debridement and/or chronic degeneration or degenerative tearing. 5. 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 6. Postsurgical changes at the acromioclavicular joint without recurrent narrowing of the supraspinatus outlet. Dictated by: Michi Nguyen M.D. on 11/21/2021 at 7:59 Approved by: Michi Nguyen M.D. on 11/21/2021 at 8:29
== END ==
PROVIDERS: PCP Internal Medicine; Referring Provider Orthopaedic Surgery; Visit Provider Orthopaedic Surgery
DX: M75.121 Complete rotator cuff tear or rupture of right shoulder, not specified as traumatic (principal); M19.011 Primary osteoarthritis, right shoulder; M94.211 Chondromalacia, right shoulder
CPT/HCPCS: 73221

== ENCOUNTER → 2022-03-21 19:25 | Outpatient (CLI) | payer MEDICARE, OTHER, SELFPAY ==
--- NOTE | 2022-03-21 19:27 | DI.MRI.S_ITS ---
PROCEDURE: MR SHOULDER RT WO CON INDICATIONS: ROTATOR CUFF TEAR ARTHROPATHY/EVAL FOR NEW INJURY TECHNIQUE: Noncontrast oblique coronal T2 fast spin echo with fat saturation, oblique sagittal T1 spin echo and T2 fast spin echo with fat saturation, axial T1 spin echo and T2 fast spin echo with fat saturation through the shoulder. COMPARISON: [facility], MR, MR SHOULDER RT WO CON, 11/17/2021, 16:54. FINDINGS: Image quality: Excellent. Rotator cuff: There is full-thickness tearing of the entire supraspinatus tendon with medial retraction and atrophy of the supraspinatus, as before. There is full-thickness tearing of the mid and anterior infraspinatus tendon at the humeral insertion site. Subscapularis tendon demonstrates full-thickness tearing of its midportion at the humeral insertion site extending to the musculotendinous junction with associated subscapularis atrophy. Teres minor is intact. Bones and bursae: No bone marrow contusions or fractures. Tendon anchors within the humeral head. No acromioclavicular joint degeneration. Status post resection at the acromioclavicular joint. The acromion demonstrates conventional anatomy, without an os acromiale. No pathologic subacromial-subdeltoid or subcoracoid bursal fluid is present. Capsule and soft tissues: There is undercutting of the posterosuperior labrum. The biceps anchor is not seen. The biceps anchor within the bicipital groove is intact, and appears to have been reimplanted. The rotator interval appears normal, without fibrosis. The coracohumeral ligament is normal in thickness. IMPRESSION: 1. Postsurgical sequelae. 2. Full-thickness tearing of the entire supraspinatus, the mid/anterior infraspinatus, as well as the mid subscapularis tendons. There is associated atrophy as described above. 3. Intact reimplanted biceps tendon. 4. Glenoid labral tear. Dictated by: Sofy Burris M.D. on 03/22/2022 at 9:44 Approved by: Sofy Burris M.D. on 03/22/2022 at 9:49
== END ==
PROVIDERS: PCP Internal Medicine; Referring Provider Orthopaedic Surgery; Visit Provider Orthopaedic Surgery
DX: M75.121 Complete rotator cuff tear or rupture of right shoulder, not specified as traumatic (principal); S43.491A Other sprain of right shoulder joint, initial encounter
CPT/HCPCS: 73221

== ENCOUNTER → 2022-04-05 10:07 | Outpatient (CLI) | payer MEDICARE, OTHER, SELFPAY ==
--- NOTE | 2022-04-05 | DI.CT.S_ITS ---
PROCEDURE: CT SHOULDER RIGHT WITHOUT CON INDICATIONS: STRAIN OF MUSCLE AND TENDON TECHNIQUE: Noncontrast 1-1.5 mm thick sections acquired from the acromioclavicular joint to the inferior scapula, with coronal and sagittal reformatting. COMPARISON: None. FINDINGS: Image quality: Excellent. Bones: Postsurgical changes are noted in anterior and lateral aspect of humeral head. Likely postsurgical widening of acromioclavicular joint is also seen. There is a fracture line through base of acromion without significant displacement and may represent postsurgical changes. No other fracture or dislocation is seen. No suspicious bony lesions. Mild to moderate glenohumeral joint osteoarthritic changes are noted. Visualized right upper ribs are intact. There is superior migration of humeral head in relation to glenoid. Soft tissues: Moderate amount of fluid within acromioclavicular joint space is seen. Moderate amount of glenohumeral joint effusion and subacromial subdeltoid bursal fluid is also present. Patient's known full-thickness rupture of distal supraspinatus and infraspinatus are not well seen on current CT study. No significant muscle atrophy is seen on sagittal images. No abnormal soft tissue calcifications. No gross intra-articular loose bodies. IMPRESSION: 1. Postsurgical changes in right humeral head. Postsurgical widening of acromioclavicular joint. Minimally displaced fracture through base of distal acromion likely represent postsurgical changes, suggest clinical correlation. No other fracture or dislocation. No suspicious bony lesions. 2. Superior migration of humeral head in relation to glenoid. Patient's known full-thickness rupture of rotator cuff tendons is not well appreciated on the current study. No significant muscle atrophy is seen. 3. Moderate amount of joint effusion as above. No abnormal soft tissue calcifications. Dictated by: Corwin Power M.D. on 04/05/2022 at 11:36 Approved by: Corwin Power M.D. on 04/05/2022 at 11:44
== END ==
PROVIDERS: PCP Internal Medicine; Referring Provider Orthopaedic Surgery; Visit Provider Orthopaedic Surgery
DX: S46.011A Strain of muscle(s) and tendon(s) of the rotator cuff of right shoulder, initial encounter (principal); S42.124A Nondisplaced fracture of acromial process, right shoulder, initial encounter for closed fracture; M25.411 Effusion, right shoulder; X58.XXXA Exposure to other specified factors, initial encounter
CPT/HCPCS: 73200

== ENCOUNTER → 2022-05-16 08:18 | Outpatient (CLI) | payer MEDICARE, OTHER, SELFPAY ==
[2022-05-16 08:50] LABS: BUN Creatinine Ratio 20.8 (6-22); Blood Urea Nitrogen 16 mg/dL (9-20); Estimated Glomerular Filt Rate > 60 mL/min (>60)
--- NOTE | 2022-05-16 10:17 | DI.CT.S_ITS ---
PROCEDURE: CT ABDOMEN PELVIS W CON INDICATIONS: Rule out occult ventral hernia TECHNIQUE: After the administration of oral and intravenous contrast, axial sections were acquired from the lung bases to the pubic symphysis. Coronal and sagittal reformats were performed. For radiation dose reduction, the following was used: automated exposure control, adjustment of mA and/or kV according to patient size. COMPARISON:[facility], CT, CT-IVP, 12/21/2009, 12:48. FINDINGS: Image quality: Excellent. Lung bases: There is a questionable pleural based spiculated nodule along the lateral aspect of the right lung base which measures 1.4 cm in diameter (series 3/image 18). This is new when compared with the prior CT of this region dated December 21, 2009. Heart: No significant findings. ABDOMEN: Liver: Unremarkable. Low-density cystic lesions are noted. Gallbladder: Unremarkable. Biliary ducts: Unremarkable. Pancreas: Unremarkable. Spleen: Unremarkable. Adrenal Glands: Unremarkable. Kidneys and Ureters: Unremarkable. A low-density cyst is present in the lower pole of the left kidney. Stomach and Bowel: Stomach, small bowel loops, and colon are unremarkable. The appendix is thin walled. Peritoneum: No abnormal intraperitoneal fluid. No free air. Ventral Wall: No hernia. Abdominal Nodes: No retroperitoneal or mesenteric adenopathy by size criteria. Vessels: Aorta and inferior vena cava are normal in size. There are scattered atheromatous calcifications throughout the aorta and iliac arteries bilaterally. PELVIS: Pelvic Organs: Unremarkable. Bladder: Unremarkable. Pelvic Nodes: No enlarged lymph nodes. Miscellaneous: There is a small fat containing left inguinal hernia.. Bones: Unremarkable. IMPRESSION: 1. Small fat containing left inguinal hernia. No other hernias visualized. 2. Questionable mass within the right lung base. Focal atelectasis could also be considered in the differential. Consider dedicated CT of the chest to further characterize this finding. Dictated by: Sola Fischer M.D. on 05/16/2022 at 11:01 Approved by: Sola Fischer M.D. on 05/16/2022 at 11:29
== END ==
PROVIDERS: PCP Internal Medicine; Referring Provider Surgery; Visit Provider Surgery
DX: R10.13 Epigastric pain (principal); K42.9 Umbilical hernia without obstruction or gangrene; K40.90 Unilateral inguinal hernia, without obstruction or gangrene, not specified as recurrent
CPT/HCPCS: 36415; 74177; 82565; 84520; Q9967

== ENCOUNTER → 2022-05-18 12:31 | Outpatient (CLI) | payer MEDICARE, OTHER, SELFPAY ==
--- NOTE | 2022-05-18 12:33 | DI.CT.S_ITS ---
PROCEDURE: CT CHEST W CON INDICATIONS: follow up right lower lung lesion TECHNIQUE: After the administration of intravenous contrast, 5 mm thick sections acquired from the pulmonary apices to the posterior costophrenic angles. 1 mm axial lung, 5 mm thick coronal and sagittal reformats and 7 mm axial MIP were acquired. For radiation dose reduction, the following was used: automated exposure control, adjustment of mA and/or kV according to patient size. COMPARISON: [facility], CT, CT-IVP, 12/21/2009, 12:48. [facility], CT, CT ABDOMEN PELVIS W CON, 05/16/2022, 10:14. FINDINGS: Image quality: Excellent. Lungs and pleura: No acute air space opacities. At the lateral right costophrenic sulcus a previously identified pleural-based radiodensity measured at 1.4 cm AP may have slightly enlarged and now measures 1.9 cm AP. There is a slight degree of adjacent alveolar airspace disease and the comparison study was performed 05/16/22. No pleural effusions or pneumothorax. Central and peripheral airways are patent and normal in caliber. Mediastinum: Heart size is normal. No pericardial effusion. No mediastinal or hilar adenopathy by size criteria. Thoracic aorta and central pulmonary arteries are normal in size. Esophagus is normal in caliber. No hiatal hernia. Bones and chest wall: No suspicious bony lesions. No vertebral body compression fractures. No axillary or supraclavicular adenopathy by size criteria. Thyroid gland appears normal where well seen. Abdomen: Visualized upper abdominal solid organs appear normal, with several scattered hepatic cysts. Upper abdominal bowel loops are normal in caliber. IMPRESSION: Apparent mild interval enlargement of an ovoid area of pleural based focal radiodensity at the right lateral costophrenic sulcus. Given the comparison study was from 05/16/22 and the current study is only 2 days later this is potentially a manifestation of an inflammatory process. This area would not be accurately assessed by plain film imaging and for this reason follow-up in 3-4 weeks by a limited noncontrast CT scanning targeted to that area is recommended. This structure was not present on a comparison CT of the urinary tract that included this area in 2009. Dictated by: Yann Lambert M.D. on 05/18/2022 at 15:14 Approved by: Yann Lambert M.D. on 05/18/2022 at 15:21
== END ==
PROVIDERS: PCP Internal Medicine; Referring Provider Surgery; Visit Provider Surgery
DX: R93.89 Abnormal findings on diagnostic imaging of other specified body structures (principal); R91.8 Other nonspecific abnormal finding of lung field
CPT/HCPCS: 71260; Q9967

== ENCOUNTER → 2022-06-14 09:06 | Outpatient (CLI) | payer MEDICARE, OTHER, SELFPAY ==
--- NOTE | 2022-06-14 09:08 | DI.CT.S_ITS ---
PROCEDURE: CT CHEST WO CON INDICATIONS: follow up after prior CT chest 05/18/22 TECHNIQUE: Noncontrast 5 mm thick sections acquired from the pulmonary apices to the posterior costophrenic angles. 1 mm lung window, 5 mm thick coronal and sagittal and 7 mm axial MIP reformats were then acquired. For radiation dose reduction, the following was used: automated exposure control, adjustment of mA and/or kV according to patient size. COMPARISON: Merged With [facility], CT, CT CHEST W [facility], 05/18/2022, 12:46. FINDINGS: Image quality: Excellent. Lungs and pleura: Again noted is a nodular density at the right costophrenic angle laterally measuring 1.7 centimeters in maximal dimension. Given that this finding has persisted from the prior examination either short interval follow-up CT in approximately 6 months or PET-CT scan to evaluate for metabolic activity may be of further clinical value. No pleural effusions or pneumothorax. Central and peripheral airways are patent and normal in caliber. Mediastinum: Heart size is normal. No pericardial effusion. No mediastinal adenopathy by size criteria. Central pulmonary arteries are normal in size. Esophagus is normal in caliber. No hiatal hernia. Again noted is a 4.6 centimeter ascending thoracic aortic aneurysm. Bones and chest wall: No suspicious bony lesions. No vertebral body compression fractures. No axillary or supraclavicular adenopathy by size criteria. Thyroid gland normal . Abdomen: Visualized upper abdominal solid organs and bowel loops appear normal in the absence of contrast others on than some hepatic cysts.. IMPRESSION: 1. Relatively stable appearance of nodular density at the right costophrenic angle measuring 1.7 centimeters in maximal dimension. Given the imaging findings either short interval follow-up CT of the chest without contrast in 6 months or a PET-CT scan to evaluate for metabolic activity may be of further clinical value. 2. Stable 4.6 centimeter ascending thoracic aortic aneurysm. 3. Scattered hepatic cysts. Dictated by: Ernesto Barragan M.D. on 06/14/2022 at 10:50 Approved by: Ernesto Barragan M.D. on 06/14/2022 at 11:00
== END ==
PROVIDERS: PCP Internal Medicine; Referring Provider Surgery; Visit Provider Surgery
DX: R91.8 Other nonspecific abnormal finding of lung field (principal); I71.21 Aneurysm of the ascending aorta, without rupture; K76.89 Other specified diseases of liver
CPT/HCPCS: 71250

== ENCOUNTER 2022-06-14 09:08 | Day surgery (SDC) | payer MEDICARE, OTHER, SELFPAY ==
--- NOTE | 2022-06-14 | PATH_ITS ---
[facility] Accession Number: [id number] No. of containers..03 Tissue . 01 Material submitted: . PART A: gastrointestinal site - BIOPSY ANTRUM PART B: colon - POLYPS TRANSVERSE COLON PART C: rectum - RECTAL POLYP . 01 Diagnosis: A. Antrum, Biopsy: Gastric antral mucosa with reactive gastropathy. Negative for Helicobacter organisms by immunohistochemistry. Negative for intestinal metaplasia. Negative for dysplasia or malignancy. . B. Transverse Colon Polyps: Colonic mucosa with prominent benign lymphoid aggregate x2. Negative for serrated lesion, dysplasia or malignancy. Additional step sections examined. . C. Rectal Polyp: Hyperplastic polyp. MRV 06/19/2022 1610 Local . 01 Electronically signed: . Tyler Warner MD, PhD, Pathologist NPI- [id number] . 01 Gross description: . A. Received in formalin, labeled with the patient's name, , and designated biopsy antrum, and consists of two irregular sexton, soft tissue fragments measuring 0.3 cm each in greatest dimension. Submitted entirely in cassette A1. B. Received in formalin, labeled with the patient's name, , and designated polyps transverse colon, and consists of two irregular sexton, soft tissue fragments ranging from 0.6 cm to 0.8 cm in greatest dimension. Submitted entirely in cassette B1. C. Received in formalin, labeled with the patient's name, , and designated rectal polyp, and consists of a single irregular sexton, soft tissue fragment measuring 0.5 cm in greatest dimension. Submitted entirely in cassette C1. ([id number]) /[facility] 06/16/2022 1722 Local . 01 Microscopic: . A. An immunohistochemical stain was performed to evaluate for Helicobacter organisms and is negative. The control stain showed appropriate reactivity. . * This test was developed and its performance characteristics determined by [facility]. It has not been cleared or approved by the U.S. Food and Drug Administration. The FDA has determined that such clearance or approval is not necessary. This test is used for clinical purposes. It should not be regarded as investigational or for research. . 01 Pathologist provided ICD-10: K29.60, K62.1, K63.5 . 01 CPT . 749443, 039498, 865784, U94733 Specimen Comment: A courtesy copy of this report has been sent to [phone] Performed at: 01 [facility] [address] [place] [address], [place], [place] [id number] MD Zaki Gonzales MD Phone: [phone]
[2022-06-14 11:13] VITALS: BP 133/92; PULSE 100; RESP 16; TEMP 36.8; O2SAT 98; BMI 29.2
[2022-06-14] MEDS: LACTATED RINGERS 1,000 ML 125 ML IV (11:28)
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
--- NOTE | 2022-06-14 14:11 | PM.OP.EC ---
Operative Date/Time/Diagnoses Date of procedure: 06/14/22 Time of procedure: 14:11 Pre-op diagnosis: Dyspepsia and colon cancer screening Post-op diagnosis: same Procedure & Clinicians Study performed: EGD and colonoscopy Same procedure as scheduled: Yes Surgeon: Mann León Procedure Notes Procedure in detail: Surgeon: Mann León MD Anesthesia: Lele Glasgow CRNA Procedure in detail: A timeout was performed. A bite blocked was placed and monitors were attached to the patient. The patient was positioned in a left lateral decubitus position. Sedation was administered by Lele Glasgow CRNA. Once the patient was sedated the endoscope was inserted through the bite block and passed through the esophagus and stomach and into the duodenum. The duodenum in the bulb appeared normal. We then withdrew the scope into the stomach. There was antritis and random biopsies taken from the antrum. The endoscope was retroflexed and no hiatal hernia was seen and no other abnormalities were seen in the stomach. The endoscope was straightned and withdrawn into the esophagus. No abnormalities were seen in the esophagus. Findings: Antritis Next we repositioned the patient for a colonoscopy. A digital rectal exam was performed and was normal. The colonoscope was inserted and advanced to the cecum. The appendiceal orifice was identified and photographed. The scope was slowly withdrawn over greater than 6 minutes. There were 2 5 mm polyps in the distal transverse colon near the splenic flexure removed with cold snare. There was a 7 mm rectal polyp removed with a cold snare. The scope was retroflexed in the rectum and no other abnormalities were seen. Findings: 2 5 mm polyps in the distal transverse colon and a 7 mm polyp in the rectum EBL: 5 mL Scope withdrawal time: 16 minutes Sedation minutes: 29 minutes Post-procedure Disposition: PACU
[2022-06-14 14:13] VITALS: BP 122/87; PULSE 122; RESP 98; O2SAT 16
[2022-06-14 14:15] VITALS: BP 103/72; PULSE 92; RESP 16; TEMP 36.4; O2SAT 97
[2022-06-14 14:18] VITALS: BP 138/93; PULSE 96; RESP 12; O2SAT 97
[2022-06-14 14:23] VITALS: BP 146/95; PULSE 95; RESP 12; TEMP 36.6; O2SAT 95
== END 2022-06-14 14:40 | disposition home or self-care (01) ==
PROVIDERS: PCP Internal Medicine; Referring Provider Surgery; Visit Provider Surgery
PROC: 0DJ08ZZ Inspection of Upper Intestinal Tract, Via Natural or Artificial Opening Endoscopic (ICD-10-PCS; CPT 43235; principal; 2022-06-14 11:30)
PROC: 0DJD8ZZ Inspection of Lower Intestinal Tract, Via Natural or Artificial Opening Endoscopic (ICD-10-PCS; CPT 45378; 2022-06-14 11:30)
DX: Z12.11 Encounter for screening for malignant neoplasm of colon (principal); R10.13 Epigastric pain; R91.8 Other nonspecific abnormal finding of lung field; I71.21 Aneurysm of the ascending aorta, without rupture; K76.89 Other specified diseases of liver; K31.9 Disease of stomach and duodenum, unspecified; K29.50 Unspecified chronic gastritis without bleeding; K62.1 Rectal polyp
CPT/HCPCS: 45385; 43239; 71250; J2704; J3010

== ENCOUNTER → 2023-01-17 07:12 | Outpatient (CLI) | payer MEDICARE, OTHER, SELFPAY ==
--- NOTE | 2023-01-17 07:14 | DI.MRI.S_ITS ---
PROCEDURE: MR FOOT LT WO/W CON INDICATIONS: Left foot lesion TECHNIQUE: Noncontrast coronal T1 spin echo and STIR, sagittal T1 spin echo with fat saturation and STIR, axial T1 spin echo and T2 fast spin echo with fat saturation. After the administration of contrast, axial/sagittal/coronal T1 spin echo with fat saturation through the left foot. COMPARISON: None. FINDINGS: Image quality: Excellent. Bones: Mild midfoot and forefoot joint osteoarthritic changes are seen with joint space narrowing, subchondral sclerosis and small marginal osteophyte formation more notably involving great toe. No suspicious intraosseous lesion or abnormal intraosseous enhancement. No fracture or dislocation. No metatarsal stress fractures. Soft tissues: There is a slightly lobulated oval heterogeneously T1 hypointense and T2 hyperintense structure within plantar soft tissue over medial cuneiform and measures up to 1.5 x 1.7 x 1.4 cm in size series 6, image 10 and series 7, image 43. After IV contrast infusion, there is heterogeneous contrast enhancement within this structure. This lesion is superficial to the adjacent flexor tendons and is involving the medial aspect of plantar fascia at this level. No other enhancing soft tissue mass or drainable fluid collection is noted. The scanned muscles demonstrate normal overall bulk and internal signal. Extensor and flexor tendons are intact. IMPRESSION: 1. 1.5 x 1.7 x 1.4 cm oval heterogeneously T1 hypointense and T2 hyperintense lesion within medial midfoot plantar soft tissue at the level of medial cuneiform/1st TMT joint and show heterogeneous contrast enhancement. There is likely involvement of adjacent medial plantar fascia which may represent a fibroma. Excision of the nodule can be done for more definitive diagnosis. 2. No underlying flexor tendon involvement. No abnormal intramuscular enhancement. 3. Mild midfoot and forefoot joint osteoarthritis. No fracture or dislocation. No abnormal intraosseous enhancement. Dictated by: Corwin Power M.D. on 01/17/2023 at 10:09 Approved by: Corwin Power M.D. on 01/17/2023 at 10:17
== END ==
PROVIDERS: PCP Internal Medicine; Referring Provider Surgery; Visit Provider Surgery
DX: D23.72 Other benign neoplasm of skin of left lower limb, including hip (principal); M19.072 Primary osteoarthritis, left ankle and foot
CPT/HCPCS: 73720; A9579

== ENCOUNTER 2023-02-12 12:02 | Day surgery (SDC) | payer MEDICARE, OTHER, SELFPAY ==
[2023-02-06 12:25] VITALS: BMI 30.1
--- NOTE | 2023-02-12 | PATH_ITS ---
[facility] Accession Number: [id number] No. of containers..01 Tissue . 01 Material submitted: . foot - LEFT FOOT FIBROMA . 01 Diagnosis: Left Foot, Excision: Cellular dermatofibroma with hemosiderotic features, green-inked 6 to 9 o'clock peripheral margin and inked deep margin are focally involved. See comment. V 02/27/2023 1421 Local . 01 Comment: The lesional cells are highlighted on a CD10 stain while negative for SOX-10 and CD34 expression, supporting the above diagnosis. Given the hemosiderotic features, an HHV8 stain is performed which is negative. Certain variants of fibrous histiocytoma/dermatofibroma (including the cellular variant) have an increased risk of local reoccurence (approximately 25%) and have been described on rare occasions to behave in an aggressive fashion. Evaluation of the margin status is somewhat limited due to artifact; however, the lesion appears to focally extends to a green-inked 6 to 9 o'clock margin, as well as focally to an inked deep margin. . This case has been reviewed by Dr. Verito Lozoya, who agrees with the above diagnosis. . * This test was developed and its performance characteristics determined by [facility]. It has not been cleared or approved by the U.S. Food and Drug Administration. The FDA has determined that such clearance or approval is not necessary. This test is used for clinical purposes. It should not be regarded as investigational or for research. . 01 Electronically signed: . Idris Peters MD, Dermatopathologist NPI- [id number] . 01 Gross description: . The specimen is received in formalin labeled with the patient's name, , and left foot fibroma, stitch wang anterior, consists of an oriented circular excision of skin with a suture designating anterior per the requisition and is now arbitrarily designated 12 o'clock. The specimen measures 2.6 cm from 12 to 6, 3.0 cm from 3 to 9, and is 0.9 cm thick. Inked as follows: 12 to 3 orange, 3 to 6 blue, 6 to 9 to 12 green, and is serially sectioned from 12 to 6 into eight slices to reveal a yellow to pale sexton firm cut surface. The specimen is submitted entirely as follows: . A1: Tips. A2-A5: Remaining sequential slices. See diagram. ([id number]) /MRV 02/13/2023 [facility]6 Local . 01 Pathologist provided ICD-10: D23.9 . 01 CPT . 258760, Y43980, D00595 Specimen Comment: A courtesy copy of this report has been sent to [phone] Performed at: 01 [facility] [address] [place] [address], [place], [place] [id number] MD Zaki Gonzales MD Phone: [phone]
[2023-02-12 12:42] VITALS: BP 151/98; PULSE 79; RESP 16; TEMP 36.2; O2SAT 98; BMI 30.1
[2023-02-12] MEDS: LACTATED RINGERS 1,000 ML 42 ML IV (12:49)
--- NOTE | 2023-02-12 13:02 | PM.PREOP ---
Pre-operative Note COVID-19 COVID-19 status: Not tested Interval Note History & Physical reviewed/Exam performed by Physician: Yes Changes to H&P: No ASA Class (for procedural sedation): II
[2023-02-12] MEDS: CEFAZOLIN 2 GM/100 ML PREMIX 100 ML IV (13:08)
--- NOTE | 2023-02-12 13:28 | SUR.OPER ---
Supine on padded OR bed, head on pillow, arms secured on padded arm boards at <90 degrees abduction, legs uncrossed, safety belt at waist tape over blanket over right lower leg, left leg draped free and lower leg on padded blankets, lateral post at lower thigh.
[2023-02-12] MEDS: BUPIVACAINE 0.5% (PF) 30 ML VIAL INJ (13:44)
[2023-02-12 15:19] VITALS: BP 141/97; PULSE 90; RESP 15; TEMP 36.8; O2SAT 95
--- NOTE | 2023-02-12 15:23 | PM.OP.1 ---
Operative Date/Time/Diagnoses Date of procedure: 02/12/23 Time of procedure: 15:23 Pre-op diagnosis: Left foot dermatofibroma Post-op diagnosis: same Procedure & Clinicians Procedure: Wide local excision of left foot dermatofibroma with flap closure Same procedure as scheduled: Yes Surgeon: Mann León Anesthesia Type: General Operative Notes Procedure in detail: The patient is a 67-year-old man with a left foot dermatofibroma that was growing. He was consented for wide local excision. The patient was given preoperative antibiotic. The patient was brought to the operating room and placed on the table in the supine position. General anesthesia was induced. The left foot and leg were prepped and draped in the usual fashion and a time-out was performed. A tourniquet was applied to the left calf. Plain Marcaine was injected around the lesion. We made an oval incision to excise the mass. The mass was attached to the fascia which was excised EN bloc. A silk stitch was placed anterior to orient the specimen. The defect was 3 cm x 2.6 cm. We then created a [place] flap taking skin from the medial and dorsal foot. The width of the flap was a proximally 3.2 cm. There was minimal laxity and so the fascia was divided to allow the flap to move into the defect. It was still impossible to close the defect completely in so we created a small V-Y flap from the plantar aspect of the wound. The V was roughly 3 cm in length. The wound was then able to be closed using multiple 2-0 nylon sutures along with a few Monocryl sutures to get the skin completely closed. The tourniquet was removed and hemostasis was observed. The flaps appeared well perfused. Xeroform was applied followed by gauze, a felt wrap and an Vasyl wrap. A walking boot was applied. EBL: 10 mL Post-operative Condition: stable Disposition: PACU
[2023-02-12 15:24] VITALS: BP 145/94; PULSE 80; RESP 14; O2SAT 97
[2023-02-12 15:29] VITALS: BP 138/97; PULSE 78; RESP 18; O2SAT 96
[2023-02-12 15:34] VITALS: BP 148/100; PULSE 84; RESP 22; TEMP 36.6; O2SAT 97
[2023-02-12] MEDS: OXYCODONE IR 5 MG TABLET PO (15:37)
[2023-02-12 15:48] VITALS: BP 157/101; PULSE 80; RESP 14; TEMP 36.3; O2SAT 97
== END 2023-02-12 16:06 | disposition home or self-care (01) ==
PROVIDERS: PCP Internal Medicine; Referring Provider Surgery; Visit Provider Surgery
PROC: (CPT 14040; principal; 2023-02-12 13:15)
DX: D21.22 Benign neoplasm of connective and other soft tissue of left lower limb, including hip (principal)
CPT/HCPCS: 14040; J0690; J1100; J2250; J2405; J2704; J3010

== ENCOUNTER → 2023-03-26 16:09 | Outpatient (CLI) | payer MEDICARE, OTHER, SELFPAY ==
--- NOTE | 2023-03-26 16:12 | DI.MRI.S_ITS ---
PROCEDURE: MR SHOULDER LT WO CON INDICATIONS: Strain of muscle(s) and tendon of the rotator cuff - left TECHNIQUE: Noncontrast oblique coronal T2 fast spin echo with fat saturation, oblique sagittal T1 spin echo and T2 fast spin echo with fat saturation, axial T1 spin echo and T2 fast spin echo with fat saturation through the shoulder. COMPARISON: [facility], CR, XR SHOULDER 2+ VIEWS LEFT, 11/28/2020, 16:16. [facility], [facility] WITHOUT CONTRAST, 02/08/2021, 12:46. [facility], CR, XR CHEST 2 VIEWS, 10/23/2022, 11:21. FINDINGS: Image quality: Excellent. Rotator cuff: There is full-thickness tear of the supraspinatus and infraspinatus tendons with tendon retraction to the musculotendinous junction. There is severe supraspinatus muscle atrophy and moderate infraspinatus muscle atrophy. There is partial thickness tear and superior tendinosis of the subscapularis tendon tendon retraction or muscle atrophy. Bones and bursae: No bone marrow contusions or fractures. There is partial resection of the distal clavicle. Moderate glenohumeral joint degeneration. The acromion demonstrates conventional anatomy, without an os acromiale. Moderate glenohumeral joint effusion. Capsule and soft tissues: There is degenerative tear of the post and superior labrum. There is partial-thickness tear and moderate tendinosis of the long head of the biceps tendon. The rotator interval appears normal, without fibrosis. The coracohumeral ligament is normal in thickness. IMPRESSION: 1. Full-thickness tear of the supraspinatus and infraspinatus tendons. There is tendon retraction and muscle atrophy. 2. Partial-thickness tear and severe tendinosis of the subscapularis tendon without tendon retraction or muscle atrophy. 3. Moderate glenohumeral joint degeneration. 4. Moderate glenohumeral joint effusion. 5. Partial-thickness tear and moderate tendinosis of the long head of the biceps tendon. 6. Degenerative posterior and superior labral tear. Dictated by: Mary Tamayo M.D. on 03/27/2023 at 9:11 Approved by: Mary Tamayo M.D. on 03/27/2023 at 9:46
== END ==
LOC: MRI 16:12
PROVIDERS: PCP Internal Medicine; Referring Provider Orthopaedic Surgery; Visit Provider Orthopaedic Surgery
DX: S46.012A Strain of muscle(s) and tendon(s) of the rotator cuff of left shoulder, initial encounter (principal); S43.431A Superior glenoid labrum lesion of right shoulder, initial encounter; M19.012 Primary osteoarthritis, left shoulder; M25.412 Effusion, left shoulder; X58.XXXA Exposure to other specified factors, initial encounter
CPT/HCPCS: 73221

== ENCOUNTER → 2023-04-01 08:47 | Outpatient (CLI) | payer MEDICARE, OTHER, SELFPAY | LOC: WC 09:01 | PROVIDERS: PCP Internal Medicine; Referring Provider Surgery; Visit Provider Physician Assistant | DX: T81.31XA Disruption of external operation (surgical) wound, not elsewhere classified, initial encounter (principal); L84 Corns and callosities; L53.9 Erythematous condition, unspecified; I10 Essential (primary) hypertension; E78.5 Hyperlipidemia, unspecified; R23.4 Changes in skin texture; R60.0 Localized edema | CPT/HCPCS: 11042; 99204; 99213 ==

== ENCOUNTER → 2023-04-09 10:06 | Outpatient (CLI) | payer MEDICARE, OTHER, SELFPAY | PROVIDERS: PCP Internal Medicine; Referring Provider Surgery; Visit Provider Surgery | DX: T81.31XA Disruption of external operation (surgical) wound, not elsewhere classified, initial encounter (principal); S91.302A Unspecified open wound, left foot, initial encounter; I10 Essential (primary) hypertension; E78.5 Hyperlipidemia, unspecified; R60.0 Localized edema; L84 Corns and callosities; R23.4 Changes in skin texture | CPT/HCPCS: 11042; 99213 ==

== ENCOUNTER → 2023-04-16 08:46 | Outpatient (CLI) | payer MEDICARE, OTHER, SELFPAY | PROVIDERS: PCP Internal Medicine; Referring Provider Surgery; Visit Provider Surgery | DX: T81.31XA Disruption of external operation (surgical) wound, not elsewhere classified, initial encounter (principal); S91.302A Unspecified open wound, left foot, initial encounter; R60.0 Localized edema; L84 Corns and callosities; I10 Essential (primary) hypertension; E78.5 Hyperlipidemia, unspecified | CPT/HCPCS: 99213 ==

== ENCOUNTER → 2023-04-23 08:33 | Outpatient (CLI) | payer MEDICARE, OTHER, SELFPAY | PROVIDERS: PCP Internal Medicine; Referring Provider Surgery; Visit Provider Surgery | DX: T81.31XA Disruption of external operation (surgical) wound, not elsewhere classified, initial encounter (principal); R23.4 Changes in skin texture; L84 Corns and callosities; I10 Essential (primary) hypertension; E78.5 Hyperlipidemia, unspecified | CPT/HCPCS: 99213 ==

== ENCOUNTER → 2023-04-30 08:49 | Outpatient (CLI) | payer MEDICARE, OTHER, SELFPAY | PROVIDERS: PCP Internal Medicine; Referring Provider Surgery; Visit Provider Surgery | DX: T81.31XD Disruption of external operation (surgical) wound, not elsewhere classified, subsequent encounter (principal); L84 Corns and callosities; I10 Essential (primary) hypertension; E78.5 Hyperlipidemia, unspecified; Z86.718 Personal history of other venous thrombosis and embolism | CPT/HCPCS: 99212; 99213 ==

== ENCOUNTER → 2024-01-29 14:43 | Outpatient (CLI) | payer MEDICARE, OTHER, SELFPAY ==
[2024-01-29 16:17] LABS: COVID-19 CEPHEID 4-PLEX PCR Negative (Negative); Influenza A - CEPHEID Flu A NEGATIVE (NEGATIVE); Influenza B - CEPHEID Flu B NEGATIVE (NEGATIVE); Respiratory Syncytial Virus Negative (Negative)
== END ==
PROVIDERS: PCP Internal Medicine; Visit Provider Student in an Organized Health Care Education/Training Program
DX: R05.1 Acute cough (principal); J32.8 Other chronic sinusitis
CPT/HCPCS: 0241U

== ENCOUNTER → 2024-06-10 19:09 | Outpatient (CLI) | payer MEDICARE, OTHER, SELFPAY ==
--- NOTE | 2024-06-10 19:12 | DI.MRI.S_ITS ---
PROCEDURE: MR SHOULDER LT WO CON INDICATIONS: Recurrent RTC Tear TECHNIQUE: Noncontrast oblique coronal T2 fast spin echo with fat saturation, oblique sagittal T1 spin echo and T2 fast spin echo with fat saturation, axial T1 spin echo and T2 fast spin echo with fat saturation through the shoulder. COMPARISON: [facility], MR, MR SHOULDER LT WO CON, 03/26/2023, 16:17. [facility], MR, MR SHOULDER RT WO CON, 03/21/2022, 19:40. [facility], MR, MR SHOULDER RT WO CON, 11/17/2021, 16:54. FINDINGS: Image quality: Excellent. Bones: Insertional cysts are present at the anterior greater tuberosity along with suture anchors related to prior rotator cuff repair and likely biceps tenodesis. The bone marrow signal is otherwise normal. There is no acute fracture or dislocation. Acromioclavicular joint: Mild osteoarthritis. Possible prior subacromial decompression. There is a type 1 acromion. Glenohumeral joint: Mild osteoarthritis with superior subluxation of the humeral head relative to the glenoid (/12). There is a small joint effusion. Labrum: Circumferential blunting of the labrum. Cartilage: There is partial-thickness chondral loss at the anterior-inferior glenoid articular surface (5/15; 7/9). Subacromial-subdeltoid bursa: There is a trace amount of fluid in the subacromial-subdeltoid bursa. Rotator cuff: Status post rotator cuff repair of the supraspinatus, subscapularis, and infraspinatus tendons, there is a high-grade tear of the repaired tendons with only a few superficial fibers remaining attached to the suture anchors (7/14; 9/15). The inferior subscapularis fibers remain attached to the footprint, while the cranial subscapularis fibers are detached to the level of the humeral apex (7/7; 9/16). The teres minor tendon is intact. Long head of biceps tendon: Status post presumed tenodesis, there is nonvisualization of the long head of the biceps tendon throughout its intra-articular or extra-articular portions. Musculature: There is severe supraspinatus and cranial infraspinatus muscle atrophy. There is mild atrophy of the subscapularis and caudal infraspinatus muscle fibers Inferior glenohumeral ligaments/Axillary pouch: The axillary pouch is normal in thickness and signal. Coracoclavicular and coracoacromial ligaments: The coracoclavicular and coracoacromial ligaments are normal. IMPRESSION: 1. High-grade tearing of the repaired rotator cuff tendons, with only a few fibers attached at the humeral head footprint, superimposed on muscle atrophy. No displacement of the suture anchors. 2. Likely full-thickness tearing of the long head of the biceps tendon with distal retraction. 3. Mild glenohumeral and mild acromioclavicular osteoarthritis. Dictated by: Momo Zamudio M.D. on 06/11/2024 at 11:26 Approved by: Momo Zamudio M.D. on 06/11/2024 at 11:46
== END ==
PROVIDERS: PCP Registered Nurse; Referring Provider Orthopaedic Surgery; Visit Provider Orthopaedic Surgery
DX: S46.012A Strain of muscle(s) and tendon(s) of the rotator cuff of left shoulder, initial encounter (principal); M19.012 Primary osteoarthritis, left shoulder; M25.412 Effusion, left shoulder; X58.XXXA Exposure to other specified factors, initial encounter
CPT/HCPCS: 73221

== ENCOUNTER 2024-09-09 12:38 | Day surgery (SDC) | payer MEDICARE, OTHER, SELFPAY ==
[2024-09-03 11:42] VITALS: BMI 29.2
--- NOTE | 2024-09-09 | PATH_ITS ---
[facility] Accession Number: [id number] No. of containers..01 Tissue . 01 Material submitted: . shoulder - RIGHT SHOULDER LIPOMA . 01 Diagnosis: SOFT TISSUE, RIGHT SHOULDER, EXCISION: Mature fibroadipose tissue, consistent with lipoma. No atypia or malignancy identified. [facility] 09/16/2024 1534 Local . 01 Electronically signed: . Pranav Valentin MD, Dermatopathologist NPI- [id number] . 01 Gross description: . Received in formalin with two identifiers and right shoulder lipoma, is a yellow lobulated partially encapsulated soft tissue fragment 5.5 x 4.0 x 1.6 cm. Inked blue and sectioned to reveal a yellow, lobulated cut surface with pale sexton, striated, presumed fibrous tissue occupying less than 10% of the cut surface. No lesions are identified. [employer] sections are submitted in cassette A1. ([id number]) /[facility] 09/13/2024 0547 Local . 01 Pathologist provided ICD-10: D17.23 . 01 CPT . 447039 Specimen Comment: A courtesy copy of this report has been sent to [phone] Performed at: 01 [facility] [address], [place], [place] [id number] MD Zaki Gonzales MD Phone: [phone]
[2024-09-09 13:48] VITALS: BMI 29.5
[2024-09-09] MEDS: LACTATED RINGERS 1,000 ML 42 ML IV (13:52)
[2024-09-09] MEDS: ACETAMINOPHEN 325 MG TABLET 975 MG PO (13:52)
[2024-09-09 14:04] VITALS: BP 134/84; PULSE 68; RESP 16; TEMP 36.9; O2SAT 98
--- NOTE | 2024-09-09 15:00 | PM.PREOP ---
Pre-operative Note COVID-19 COVID-19 status: Not tested Interval Note History & Physical reviewed/Exam performed by Physician: Yes Changes to H&P: No ASA Class (for procedural sedation): I
--- NOTE | 2024-09-09 15:37 | SUR.OPER ---
Lateral on a sandoval bag, head on pillow, gel axillary roll in place, bottom leg bent with gel pad under knee to foot, upper leg straight and supported with pillows. Upper arm supported by pillows and secured over bottom arm to padded arm board. Safety belt at hip, tape over blanket lower legs. Dr. León in room to assist with positioning, all pressure points padded. Final position approved by
[2024-09-09] MEDS: BUPIVACAINE 0.5% W/ EPI (PF) 30 ML VIAL INJ (15:41)
--- NOTE | 2024-09-09 16:17 | P.OP_ITS ---
Operative Date/Time/Diagnoses Date of procedure: 09/09/24 Time of procedure: 16:17 Pre-op diagnosis: Right shoulder lipoma Post-op diagnosis: same Procedure & Clinicians Procedure: Excisional biopsy of right shoulder lipoma Same procedure(s) as scheduled: Yes Surgeon: Mann León Click Yes if Unassisted: Yes Anesthesia Type: General Operative Notes Findings: 6 cm x 4 cm x 3 cm right shoulder lipoma Applied: none Estimated Blood Loss (mL): 5 Procedure in detail: The patient was brought to the operating room and placed on the table in the sup ine position. General LMA anesthesia was induced. He was then turned to the left lateral decubitus position with the right side up. He was secured in position with the sandoval bag. The right shoulder was prepped and draped in the usual fashion and a time-out was performed. We made a 6 cm incision over the mass of the posterior right shoulder. It appeared to be a lipoma. We dissected down to the muscle fascia and dissected the lipoma off the muscle fascia and block. Some additional local was injected into the muscle fascia and the deep subcutaneous tissue. It was then closed in layers using multiple interrupted 3- 0 Vicryl dermal sutures followed by a running 4-0 Monocryl subcuticular stitch. Steri-Strips and dry gauze were applied over the wound. EBL: 5 mL Specimen: Right shoulder lipoma Complications: none Post-operative Condition: stable Disposition: PACU
[2024-09-09 16:18] VITALS: BP 129/91; PULSE 79; RESP 12; TEMP 36.6; O2SAT 95
[2024-09-09 16:23] VITALS: BP 134/91; PULSE 78; RESP 14; O2SAT 95
[2024-09-09 16:28] VITALS: BP 150/81; PULSE 90; RESP 18; O2SAT 96
[2024-09-09 16:31] VITALS: BP 148/81; PULSE 80; RESP 14; O2SAT 96
== END 2024-09-09 17:00 | disposition home or self-care (01) ==
PROVIDERS: PCP Registered Nurse; Referring Provider Registered Nurse; Visit Provider Surgery
PROC: (CPT 23071; principal; 2024-09-09 14:45)
DX: D17.1 Benign lipomatous neoplasm of skin and subcutaneous tissue of trunk (principal)
CPT/HCPCS: 23071; J1100; J1885; J2405; J2704

== ENCOUNTER → 2024-12-01 10:26 | Outpatient (CLI) | payer MEDICARE, OTHER, SELFPAY ==
--- NOTE | 2024-12-01 10:29 | DI.RAD.S_ITS ---
PROCEDURE: XR LUMBAR SPINE MIN 4V INDICATIONS: BACK PAIN TECHNIQUE: 5 views of the lumbar spine were acquired, including bilateral oblique views. COMPARISON: None. FINDINGS: Bones: 5 nonrib-bearing vertebrae are present. There is normal bony alignment. No vertebral body compression fractures. No suspicious bony lesions. Severe degenerative disc changes throughout the lumbar spine. Severe L3-L4, L4-L5 and L5-S1 facet arthropathy. Mild L1-L2 and L2-L3 facet arthropathy. Soft tissues: Overlying bowel gas pattern is normal. No suspicious soft tissue calcifications. Surgical clips in the left groin. Oblique images: No pars defects. IMPRESSION: Multilevel degenerative disc disease. Multilevel facet arthropathy. No fracture. No acute osseous lesion. If symptoms and/or clinical suspicion for pathology persists, evaluation with CT or MRI should be considered for further assessment. Dictated by: Massiel Pena MD, PhD on 12/01/2024 at 11:44 Approved by: Massiel Pena MD, PhD on 12/01/2024 at 11:45
== END ==
PROVIDERS: PCP Registered Nurse; Referring Provider Physical Medicine & Rehabilitation; Visit Provider Physical Medicine & Rehabilitation
DX: M47.816 Spondylosis without myelopathy or radiculopathy, lumbar region (principal); M47.817 Spondylosis without myelopathy or radiculopathy, lumbosacral region; M51.369 Other intervertebral disc degeneration, lumbar region without mention of lumbar back pain or lower extremity pain; M54.9 Dorsalgia, unspecified
CPT/HCPCS: 72110